=== PATIENT | male | born 1970 | race Caucasian/White ===

== ENCOUNTER 2023-10-01 06:25 | Day surgery (SDC) | payer BC ==
[2023-10-01] MEDS: Lactated Ringers 1,000 ML IV SCH (06:50)
[2023-10-01] MEDS ORDERED: fentaNYL 100 MCG/2 ML SDV ONE (07:38)
[2023-10-01] MEDS ORDERED: Propofol 200 MG/20 ML SDV ONE (07:38)
== END 2023-10-01 09:12 | disposition home or self-care (01) ==
LOC: VM.SDS 06:25
PROVIDERS: ATTEND Student in an Organized Health Care Education/Training Program
DX: Z12.11 Encounter for screening for malignant neoplasm of colon (principal); D12.3 Benign neoplasm of transverse colon; D12.8 Benign neoplasm of rectum; E78.5 Hyperlipidemia, unspecified; F17.220 Nicotine dependence, chewing tobacco, uncomplicated; Z80.0 Family history of malignant neoplasm of digestive organs
CPT/HCPCS: 00811; J2704; J3010; J7120